=== PATIENT | male | born 1970 | race Caucasian/White ===

== ENCOUNTER 2021-07-16 19:43 | Inpatient (IN) | payer OTHER ==
[2021-07-16 20:29] LABS: ALT (SGPT) 54 U/L (8-55); AST (SGOT) 49 U/L (5-34); Albumin 3.8 g/dL (3.5-5.0); Alkaline Phosphatase 73 U/L (40-110); Anion Gap 14 mmol/L (10-20); BUN (Urea Nitrogen) 18 mg/dL (8.9-20.6); Bilirubin, Total 0.8 mg/dL (0.2-1.2); Calc. Creatinine Clearance 0 mL/min (70-130); Calcium 9.1 mg/dL (7.8-10.44); Carbon Dioxide 24 mmol/L (22-29); Chloride 104 mmol/L (98-107); Globulin 3.5 g/dL (2.4-3.5); Glucose 257 mg/dL (70-105); Potassium 4.4 mmol/L (3.5-5.1); Protein, Total 7.3 g/dL (6.0-8.3); Sodium 138 mmol/L (136-145)
[2021-07-16 20:40] LABS: #Monocytes 0.3 10x3/uL (0.0-1.1); #Neutrophils 8.6 10x3/uL (1.5-8.4); %Basophils 0.2 % (0.0-2.0); %Lymphocytes 7.7 % (18.0-47.0); %Monocytes 3.2 % (0.0-10.0); Hemoglobin 14.7 g/dL (13.5-17.5); Mean Corpuscular HGB CONC 34.1 g/dL (32.0-36.0); Mean Corpuscular Hemoglobin 29.8 pg (27.0-33.0); Mean Corpuscular Volume 87.2 fl (81.2-95.1); Mean Platelet Volume 10.8 fl (7.4-10.4); Platelet Count 194 10x3/uL (150-450); RBC Distribution Width 12.1 % (11.5-14.5); Red Blood Cell (RBC) Count 4.94 10x6/uL (4.32-5.72); White Blood Cell (WBC) Count 9.7 10x3/uL (3.5-10.5)
[2021-07-16] MEDS ORDERED: Dextrose 5% in Water 1,000 ML IV PRN (23:31)
[2021-07-16] MEDS ORDERED: Dextrose 50% Abboject 50 ML SYRINGE SLOW IVP PRN (23:31)
[2021-07-16] MEDS ORDERED: Zinc Sulfate 220 MG CAP PO SCH (23:45)
[2021-07-16] MEDS ORDERED: Ascorbic Acid 500 mg Chewable Tablet PO SCH (23:45)
[2021-07-16] MEDS ORDERED: Cholecalciferol 1,000 UNITS (25 MCG) TAB PO SCH (23:45)
[2021-07-16] MEDS ORDERED: Sodium Chloride 0.9% 1,000 ML IV SCH (23:59)
[2021-07-17] MEDS ORDERED: Furosemide 20 MG/2 ML VIAL SLOW IVP SCH (00:15)
[2021-07-17 00:26] LABS: Magnesium 2.2 mg/dL (1.6-2.6); Troponin I Less than 0.010 ng/mL (< 0.028)
[2021-07-17 03:48] LABS: Hemoglobin 14.8 g/dL (13.5-17.5); MDiff Complete? YES; Manual Diff?? YES; Mean Corpuscular HGB CONC 32.8 g/dL (32.0-36.0); Mean Corpuscular Hemoglobin 29.1 pg (27.0-33.0); Mean Corpuscular Volume 88.6 fl (81.2-95.1); Mean Platelet Volume 10.9 fl (7.4-10.4); Platelet Count 213 10x3/uL (150-450); Red Blood Cell (RBC) Count 5.09 10x6/uL (4.32-5.72); White Blood Cell (WBC) Count 7.4 10x3/uL (3.5-10.5)
[2021-07-17 04:02] LABS: Anion Gap 17 mmol/L (10-20); BUN (Urea Nitrogen) 18 mg/dL (8.9-20.6); Calc. Creatinine Clearance 140 mL/min (70-130); Calcium 9.2 mg/dL (7.8-10.44); Carbon Dioxide 23 mmol/L (22-29); Chloride 103 mmol/L (98-107); Glucose 233 mg/dL (70-105); Potassium 3.9 mmol/L (3.5-5.1); Sodium 139 mmol/L (136-145)
[2021-07-17 04:05] LABS: Troponin I Less than 0.010 ng/mL (< 0.028)
[2021-07-17 06:12] LABS: Band 1 % (5-11); Lymphocytes 6 % (21-51); Monocytes 4 % (0-10); Neutrophil 88 % (42-75); Reactive Lymphocytes 1 % (0-10)
[2021-07-17 06:13] LABS: Platelet Morphology Comment Appears Adequate
[2021-07-17] MEDS ORDERED: Budesonide 0.5 MG/2 ML NEB NEB SCH (06:30)
[2021-07-17] MEDS: Enoxaparin Sodium 40 MG/0.4 ML SYRINGE SC SCH (07:56)
[2021-07-17] MEDS: Cholecalciferol 1,000 UNITS (25 MCG) TAB PO SCH (08:02)
[2021-07-17] MEDS: Ascorbic Acid 500 mg Chewable Tablet PO SCH (08:02)
[2021-07-17] MEDS: Zinc Sulfate 220 MG CAP PO SCH (08:02)
[2021-07-17] MEDS ORDERED: Mometasone 100 MCG/PUFF (1 INHALER) INH SCH (09:00)
[2021-07-17] MEDS ORDERED: Dexamethasone 4 mg/ml Vial SLOW IVP SCH (09:00)
[2021-07-17] MEDS ORDERED: Famotidine/PF 20 mg/2ml Vial SLOW IVP SCH (09:00)
[2021-07-17] MEDS: HumaLOG 300 UNITS/3 ML VIAL SC PRN ×3 (09:12→20:38)
[2021-07-17] MEDS ORDERED: BARICITINIB 2 MG TAB PO SCH (09:30)
[2021-07-17] MEDS: Mometasone 100 MCG/PUFF (1 INHALER) INH SCH (09:50)
[2021-07-17] MEDS ORDERED: ALPRAZolam 0.5 MG TAB PO PRN (10:07)
[2021-07-17] MEDS: methylPREDNISolone Sod Succ/PF 125 MG/2 ML VIAL IVP SCH ×2 (10:43→22:35)
[2021-07-17] MEDS: Famotidine/PF 20 mg/2ml Vial SLOW IVP SCH (20:41)
[2021-07-18] MEDS ORDERED: Guaifenesin DM 100-10/5 ML UDCUP PO PRN (00:11)
[2021-07-18] MEDS: HumaLOG 300 UNITS/3 ML VIAL SC PRN ×6 (00:41→20:53)
[2021-07-18 03:50] LABS: Hemoglobin 14.8 g/dL (13.5-17.5); Mean Corpuscular HGB CONC 33.3 g/dL (32.0-36.0); Mean Corpuscular Hemoglobin 29.8 pg (27.0-33.0); Mean Corpuscular Volume 89.5 fl (81.2-95.1); Mean Platelet Volume 11.5 fl (7.4-10.4); Platelet Count 240 10x3/uL (150-450); RBC Distribution Width 11.9 % (11.5-14.5); Red Blood Cell (RBC) Count 4.96 10x6/uL (4.32-5.72); White Blood Cell (WBC) Count 9.6 10x3/uL (3.5-10.5)
[2021-07-18 04:12] LABS: Troponin I Less than 0.010 ng/mL (< 0.028)
[2021-07-18 04:31] LABS: ALT (SGPT) 70 U/L (8-55); AST (SGOT) 43 U/L (5-34); Albumin 3.7 g/dL (3.5-5.0); Alkaline Phosphatase 71 U/L (40-110); Anion Gap 18 mmol/L (10-20); BUN (Urea Nitrogen) 28 mg/dL (8.9-20.6); Bilirubin, Total 0.7 mg/dL (0.2-1.2); Calc. Creatinine Clearance 137 mL/min (70-130); Calcium 9.4 mg/dL (7.8-10.44); Carbon Dioxide 23 mmol/L (22-29); Chloride 103 mmol/L (98-107); Globulin 3.4 g/dL (2.4-3.5); Glucose 269 mg/dL (70-105); Potassium 4.5 mmol/L (3.5-5.1); Protein, Total 7.1 g/dL (6.0-8.3); Sodium 139 mmol/L (136-145)
[2021-07-18 04:34] LABS: MDiff Complete? YES; Manual Diff?? YES
[2021-07-18 04:48] LABS: Band 2 % (5-11); Lymphocytes 4 % (21-51); Monocytes 2 % (0-10); Neutrophil 91 % (42-75); Platelet Morphology Comment Appears Adequate; Reactive Lymphocytes 1 % (0-10)
[2021-07-18 07:30] LABS: Actual Bicarbonate (HCO3a) 25.1 mEq/L (22-28); Base Excess (BEa) 1.6 mEq/L (-2.0 to +3.0); CO2 Tension 36.4 mmHg (35.0-45.0); Calcium, Ionized (arterial) 1.21 mmol/L (1.12-1.30); Carboxyhemoglobin (COHb) 0.3 gm% (0.0-3.0); Hemoglobin (Hb) 15.2 g/dL (14.0-18.0); O2 Tension (PaO2), arterial 73.6 mmHg (80.0-100.0); Potassium - ABG Lab 4.4 mmol/L (3.70-5.30); Puncture Site RRA; pH, Arterial 7.46 (7.35-7.45)
[2021-07-18] MEDS: Mometasone 100 MCG/PUFF (1 INHALER) INH SCH ×2 (08:18→18:59)
[2021-07-18] MEDS: Zinc Sulfate 220 MG CAP PO SCH (08:24)
[2021-07-18] MEDS: BARICITINIB 2 MG TAB PO SCH (08:24)
[2021-07-18] MEDS: Enoxaparin Sodium 40 MG/0.4 ML SYRINGE SC SCH (08:25)
[2021-07-18] MEDS: Ascorbic Acid 500 mg Chewable Tablet PO SCH (08:25)
[2021-07-18] MEDS: Cholecalciferol 1,000 UNITS (25 MCG) TAB PO SCH (08:25)
[2021-07-18] MEDS: Famotidine/PF 20 mg/2ml Vial SLOW IVP SCH ×2 (08:25→21:47)
[2021-07-18] MEDS: methylPREDNISolone Sod Succ/PF 125 MG/2 ML VIAL IVP SCH ×2 (09:40→21:43)
[2021-07-18] MEDS ORDERED: Senokot S 8.6-50 MG TAB PO PRN (12:08)
[2021-07-18] MEDS ORDERED: Ondansetron ODT 4 MG TAB PO PRN (12:08)
[2021-07-18] MEDS ORDERED: Hydrocerin (Eucerin) Cream 120 gm Jar TOP PRN (12:08)
[2021-07-18] MEDS ORDERED: Cepastat Lozenges 1 LOZ PO PRN (12:08)
[2021-07-18] MEDS ORDERED: HYDROcodone/Acetaminophen 5/325 mg Tablet PO PRN (12:08)
[2021-07-18] MEDS ORDERED: Sodium Chloride 0.65% Nasal 44 ML BOT EA NARE PRN (12:08)
[2021-07-18] MEDS ORDERED: Loperamide HCl 2 MG CAP PO PRN (12:08)
[2021-07-18] MEDS ORDERED: Artificial Tear Sol 15 ML BOT EA EYE PRN (12:08)
[2021-07-18] MEDS ORDERED: Loratadine 10 MG TAB PO PRN (12:08)
[2021-07-18] MEDS ORDERED: GUAIFENESIN SF SOLN 200 MG/10 ML UDCUP PO PRN (12:08)
[2021-07-18] MEDS ORDERED: Ondansetron PF 4 MG/2 ML Vial IVP PRN (12:08)
[2021-07-18] MEDS ORDERED: Bisacodyl 5 MG TAB PO PRN (12:08)
[2021-07-18] MEDS ORDERED: hydrALAZINE 20 MG/ML VIAL SLOW IVP PRN (12:08)
[2021-07-18] MEDS ORDERED: Calcium Carbonate 500 MG ChewTAB PO PRN (12:08)
[2021-07-18] MEDS: Benzonatate 100 MG CAP PO PRN (21:48)
[2021-07-18] MEDS: ALPRAZolam 0.25 MG TAB PO PRN (22:35)
[2021-07-19] MEDS: HumaLOG 300 UNITS/3 ML VIAL SC PRN ×4 (00:07→20:16)
[2021-07-19 05:02] LABS: ALT (SGPT) 60 U/L (8-55); AST (SGOT) 29 U/L (5-34); Albumin 3.6 g/dL (3.5-5.0); Alkaline Phosphatase 63 U/L (40-110); Anion Gap 16 mmol/L (10-20); BUN (Urea Nitrogen) 30 mg/dL (8.9-20.6); Bilirubin, Total 0.7 mg/dL (0.2-1.2); CRP (Inflammatory) 2.98 mg/dL (= or < 0.5); Calc. Creatinine Clearance 125 mL/min (70-130); Calcium 9.5 mg/dL (7.8-10.44); Carbon Dioxide 27 mmol/L (22-29); Chloride 103 mmol/L (98-107); Globulin 3.3 g/dL (2.4-3.5); Glucose 178 mg/dL (70-105); Magnesium 2.6 mg/dL (1.6-2.6); Potassium 4.5 mmol/L (3.5-5.1); Protein, Total 6.9 g/dL (6.0-8.3); Sodium 141 mmol/L (136-145)
[2021-07-19 05:23] LABS: #Monocytes 0.5 10x3/uL (0.0-1.1); #Neutrophils 9.8 10x3/uL (1.5-8.4); %Basophils 0.2 % (0.0-2.0); %Lymphocytes 8.9 % (18.0-47.0); %Monocytes 4.5 % (0.0-10.0); %Neutrophils 85.2 % (40.0-75.0); Hemoglobin 14.6 g/dL (13.5-17.5); Mean Corpuscular HGB CONC 33.1 g/dL (32.0-36.0); Mean Corpuscular Hemoglobin 29.4 pg (27.0-33.0); Mean Corpuscular Volume 88.9 fl (81.2-95.1); Mean Platelet Volume 11.5 fl (7.4-10.4); Platelet Count 287 10x3/uL (150-450); RBC Distribution Width 11.7 % (11.5-14.5); Red Blood Cell (RBC) Count 4.96 10x6/uL (4.32-5.72); White Blood Cell (WBC) Count 11.5 10x3/uL (3.5-10.5)
[2021-07-19] MEDS ORDERED: Acetaminophen 325 MG TAB PO PRN (07:36)
[2021-07-19] MEDS ORDERED: Famotidine 20 MG TAB PO SCH (09:00)
[2021-07-19] MEDS: Zinc Sulfate 220 MG CAP PO SCH (09:25)
[2021-07-19] MEDS: Enoxaparin Sodium 40 MG/0.4 ML SYRINGE SC SCH (09:25)
[2021-07-19] MEDS: Ascorbic Acid 500 mg Chewable Tablet PO SCH (09:25)
[2021-07-19] MEDS: BARICITINIB 2 MG TAB PO SCH (09:25)
[2021-07-19] MEDS: methylPREDNISolone Sod Succ/PF 125 MG/2 ML VIAL IVP SCH ×2 (09:26→21:18)
[2021-07-19] MEDS: Cholecalciferol 1,000 UNITS (25 MCG) TAB PO SCH (09:26)
[2021-07-19] MEDS: Mometasone 100 MCG/PUFF (1 INHALER) INH SCH ×2 (14:04→19:35)
[2021-07-19] MEDS: Ventolin HFA Inhaler 60 PUFF INHALER INH SCH ×2 (14:20→19:40)
[2021-07-19] MEDS: ALPRAZolam 0.25 MG TAB PO PRN (22:56)
[2021-07-20] MEDS: HumaLOG 300 UNITS/3 ML VIAL SC PRN ×6 (00:09→20:59)
[2021-07-20] MEDS: Ventolin HFA Inhaler 60 PUFF INHALER INH SCH ×4 (01:15→20:00)
[2021-07-20 04:28] LABS: #Monocytes 0.6 10x3/uL (0.0-1.1); #Neutrophils 8.2 10x3/uL (1.5-8.4); %Basophils 0.2 % (0.0-2.0); %Lymphocytes 10.4 % (18.0-47.0); %Monocytes 6.1 % (0.0-10.0); %Neutrophils 82.2 % (40.0-75.0); Hemoglobin 14.3 g/dL (13.5-17.5); Mean Corpuscular HGB CONC 33.2 g/dL (32.0-36.0); Mean Corpuscular Hemoglobin 29.2 pg (27.0-33.0); Mean Platelet Volume 11.6 fl (7.4-10.4); Platelet Count 277 10x3/uL (150-450); RBC Distribution Width 11.6 % (11.5-14.5); White Blood Cell (WBC) Count 9.9 10x3/uL (3.5-10.5)
[2021-07-20 04:40] LABS: CRP (Inflammatory) 1.54 mg/dL (= or < 0.5); Phosphorus 4.7 mg/dL (2.3-4.7)
[2021-07-20 04:41] LABS: ALT (SGPT) 51 U/L (8-55); AST (SGOT) 26 U/L (5-34); Albumin 3.5 g/dL (3.5-5.0); Alkaline Phosphatase 58 U/L (40-110); Bilirubin, Direct 0.3 mg/dL (0.1-0.3); Bilirubin, Total 0.8 mg/dL (0.2-1.2); Magnesium 2.5 mg/dL (1.6-2.6)
[2021-07-20 04:46] LABS: Protein, Total 6.4 g/dL (6.0-8.3)
[2021-07-20] MEDS: Cholecalciferol 1,000 UNITS (25 MCG) TAB PO SCH (08:28)
[2021-07-20] MEDS: Ascorbic Acid 500 mg Chewable Tablet PO SCH (08:28)
[2021-07-20] MEDS: BARICITINIB 2 MG TAB PO SCH (08:28)
[2021-07-20] MEDS: Enoxaparin Sodium 40 MG/0.4 ML SYRINGE SC SCH (08:28)
[2021-07-20] MEDS: Zinc Sulfate 220 MG CAP PO SCH (08:30)
[2021-07-20] MEDS: methylPREDNISolone Sod Succ/PF 125 MG/2 ML VIAL IVP SCH ×2 (10:15→21:27)
[2021-07-20] MEDS: Mometasone 100 MCG/PUFF (1 INHALER) INH SCH ×2 (12:40→19:50)
[2021-07-21] MEDS: HumaLOG 300 UNITS/3 ML VIAL SC PRN ×4 (00:33→16:33)
[2021-07-21] MEDS: Ventolin HFA Inhaler 60 PUFF INHALER INH SCH ×4 (01:50→19:18)
[2021-07-21] MEDS: Mometasone 100 MCG/PUFF (1 INHALER) INH SCH ×2 (07:02→19:15)
[2021-07-21] MEDS ORDERED: HumaLOG 300 UNITS/3 ML VIAL ONE (08:39)
[2021-07-21] MEDS: Ascorbic Acid 500 mg Chewable Tablet PO SCH (08:49)
[2021-07-21] MEDS: BARICITINIB 2 MG TAB PO SCH (08:50)
[2021-07-21] MEDS: Zinc Sulfate 220 MG CAP PO SCH (08:51)
[2021-07-21] MEDS: Benzonatate 100 MG CAP PO PRN (08:51)
[2021-07-21] MEDS: Cholecalciferol 1,000 UNITS (25 MCG) TAB PO SCH (08:51)
[2021-07-21] MEDS: Enoxaparin Sodium 40 MG/0.4 ML SYRINGE SC SCH (08:51)
[2021-07-21] MEDS: methylPREDNISolone Sod Succ/PF 125 MG/2 ML VIAL IVP SCH ×2 (12:17→21:24)
[2021-07-22] MEDS: Ventolin HFA Inhaler 60 PUFF INHALER INH SCH ×4 (01:40→19:10)
[2021-07-22 04:36] LABS: #Monocytes 0.3 10x3/uL (0.0-1.1); #Neutrophils 8.9 10x3/uL (1.5-8.4); %Basophils 0.1 % (0.0-2.0); %Lymphocytes 8.3 % (18.0-47.0); %Monocytes 3.2 % (0.0-10.0); %Neutrophils 86.6 % (40.0-75.0); Hemoglobin 14.6 g/dL (13.5-17.5); Mean Corpuscular HGB CONC 34.4 g/dL (32.0-36.0); Mean Corpuscular Hemoglobin 29.7 pg (27.0-33.0); Mean Corpuscular Volume 86.6 fl (81.2-95.1); Mean Platelet Volume 11.3 fl (7.4-10.4); Platelet Count 285 10x3/uL (150-450); RBC Distribution Width 11.7 % (11.5-14.5); Red Blood Cell (RBC) Count 4.91 10x6/uL (4.32-5.72); White Blood Cell (WBC) Count 10.3 10x3/uL (3.5-10.5)
[2021-07-22 04:58] LABS: ALT (SGPT) 58 U/L (8-55); AST (SGOT) 24 U/L (5-34); Albumin 3.4 g/dL (3.5-5.0); Alkaline Phosphatase 59 U/L (40-110); Anion Gap 12 mmol/L (10-20); BUN (Urea Nitrogen) 26 mg/dL (8.9-20.6); CRP (Inflammatory) 0.53 mg/dL (= or < 0.5); Calc. Creatinine Clearance 129 mL/min (70-130); Calcium 8.9 mg/dL (7.8-10.44); Carbon Dioxide 27 mmol/L (22-29); Chloride 102 mmol/L (98-107); Globulin 2.9 g/dL (2.4-3.5); Glucose 251 mg/dL (70-105); Potassium 4.7 mmol/L (3.5-5.1); Protein, Total 6.3 g/dL (6.0-8.3); Sodium 136 mmol/L (136-145)
[2021-07-22] MEDS: Mometasone 100 MCG/PUFF (1 INHALER) INH SCH ×2 (07:30→19:15)
[2021-07-22] MEDS: Zinc Sulfate 220 MG CAP PO SCH (08:52)
[2021-07-22] MEDS: methylPREDNISolone Sod Succ 40 MG VIAL IVP SCH ×2 (08:52→20:07)
[2021-07-22] MEDS: Enoxaparin Sodium 40 MG/0.4 ML SYRINGE SC SCH (08:52)
[2021-07-22] MEDS: Cholecalciferol 1,000 UNITS (25 MCG) TAB PO SCH (08:52)
[2021-07-22] MEDS: metFORMIN 500 MG TAB PO SCH ×2 (08:52→18:19)
[2021-07-22] MEDS: BARICITINIB 2 MG TAB PO SCH (08:52)
[2021-07-22] MEDS: HumaLOG 300 UNITS/3 ML VIAL SC PRN ×4 (08:53→20:12)
[2021-07-22] MEDS: Ascorbic Acid 500 mg Chewable Tablet PO SCH (08:53)
[2021-07-23] MEDS: Ventolin HFA Inhaler 60 PUFF INHALER INH SCH ×4 (01:14→21:30)
[2021-07-23 06:21] LABS: ALT (SGPT) 58 U/L (8-55); AST (SGOT) 21 U/L (5-34); Albumin 3.4 g/dL (3.5-5.0); Alkaline Phosphatase 61 U/L (40-110); Bilirubin, Direct 0.3 mg/dL (0.1-0.3); Bilirubin, Total 0.9 mg/dL (0.2-1.2); Protein, Total 6.3 g/dL (6.0-8.3)
[2021-07-23] MEDS: HumaLOG 300 UNITS/3 ML VIAL SC PRN ×5 (06:45→20:43)
[2021-07-23] MEDS: Mometasone 100 MCG/PUFF (1 INHALER) INH SCH ×2 (07:09→21:22)
[2021-07-23] MEDS: metFORMIN 500 MG TAB PO SCH ×2 (09:01→18:05)
[2021-07-23] MEDS: Zinc Sulfate 220 MG CAP PO SCH (09:01)
[2021-07-23] MEDS: BARICITINIB 2 MG TAB PO SCH (09:01)
[2021-07-23] MEDS: Ascorbic Acid 500 mg Chewable Tablet PO SCH (09:01)
[2021-07-23] MEDS: Cholecalciferol 1,000 UNITS (25 MCG) TAB PO SCH (09:01)
[2021-07-23] MEDS: Enoxaparin Sodium 40 MG/0.4 ML SYRINGE SC SCH (09:01)
[2021-07-23] MEDS: methylPREDNISolone Sod Succ 40 MG VIAL IVP SCH ×2 (09:01→20:43)
[2021-07-24] MEDS: Ventolin HFA Inhaler 60 PUFF INHALER INH SCH ×5 (02:03→23:50)
[2021-07-24] MEDS: HumaLOG 300 UNITS/3 ML VIAL SC PRN ×4 (05:26→22:15)
[2021-07-24] MEDS: Mometasone 100 MCG/PUFF (1 INHALER) INH SCH ×2 (07:36→18:35)
[2021-07-24] MEDS: metFORMIN 500 MG TAB PO SCH ×2 (10:47→17:38)
[2021-07-24] MEDS: Ascorbic Acid 500 mg Chewable Tablet PO SCH (10:47)
[2021-07-24] MEDS: Enoxaparin Sodium 40 MG/0.4 ML SYRINGE SC SCH (10:48)
[2021-07-24] MEDS: BARICITINIB 2 MG TAB PO SCH (10:48)
[2021-07-24] MEDS: Cholecalciferol 1,000 UNITS (25 MCG) TAB PO SCH (10:48)
[2021-07-24] MEDS: Zinc Sulfate 220 MG CAP PO SCH (10:49)
[2021-07-24] MEDS: methylPREDNISolone Sod Succ 40 MG VIAL IVP SCH ×2 (10:49→22:08)
[2021-07-25] MEDS: HumaLOG 300 UNITS/3 ML VIAL SC PRN ×2 (06:06→16:45)
[2021-07-25] MEDS: Ventolin HFA Inhaler 60 PUFF INHALER INH SCH ×3 (07:37→19:16)
[2021-07-25] MEDS: Mometasone 100 MCG/PUFF (1 INHALER) INH SCH ×2 (07:38→19:16)
[2021-07-25] MEDS: metFORMIN 500 MG TAB PO SCH ×2 (10:57→16:45)
[2021-07-25] MEDS: BARICITINIB 2 MG TAB PO SCH (10:58)
[2021-07-25] MEDS: predniSONE 20 MG TAB PO SCH (10:58)
[2021-07-25] MEDS: Ascorbic Acid 500 mg Chewable Tablet PO SCH (10:58)
[2021-07-25] MEDS: Cholecalciferol 1,000 UNITS (25 MCG) TAB PO SCH (10:59)
[2021-07-25] MEDS: Enoxaparin Sodium 40 MG/0.4 ML SYRINGE SC SCH (10:59)
[2021-07-25] MEDS: Zinc Sulfate 220 MG CAP PO SCH (10:59)
[2021-07-26] MEDS: Ventolin HFA Inhaler 60 PUFF INHALER INH SCH ×4 (02:13→20:01)
[2021-07-26 04:51] LABS: ALT (SGPT) 82 U/L (8-55); AST (SGOT) 29 U/L (5-34); Albumin 3.6 g/dL (3.5-5.0); Alkaline Phosphatase 65 U/L (40-110); Anion Gap 13 mmol/L (10-20); BUN (Urea Nitrogen) 24 mg/dL (8.9-20.6); Bilirubin, Direct 0.3 mg/dL (0.1-0.3); Bilirubin, Total 0.8 mg/dL (0.2-1.2); Calc. Creatinine Clearance 134 mL/min (70-130); Calcium 9.3 mg/dL (7.8-10.44); Carbon Dioxide 31 mmol/L (22-29); Chloride 97 mmol/L (98-107); Glucose 161 mg/dL (70-105); Potassium 4.7 mmol/L (3.5-5.1); Protein, Total 6.3 g/dL (6.0-8.3); Sodium 136 mmol/L (136-145)
[2021-07-26] MEDS: Ascorbic Acid 500 mg Chewable Tablet PO SCH (09:03)
[2021-07-26] MEDS: predniSONE 20 MG TAB PO SCH (09:03)
[2021-07-26] MEDS: metFORMIN 500 MG TAB PO SCH ×2 (09:03→17:42)
[2021-07-26] MEDS: Zinc Sulfate 220 MG CAP PO SCH (09:04)
[2021-07-26] MEDS: Enoxaparin Sodium 40 MG/0.4 ML SYRINGE SC SCH (09:04)
[2021-07-26] MEDS: Cholecalciferol 1,000 UNITS (25 MCG) TAB PO SCH (09:04)
[2021-07-26] MEDS: Mometasone 100 MCG/PUFF (1 INHALER) INH SCH ×2 (09:18→20:01)
[2021-07-26] MEDS ORDERED: BARICITINIB 2 MG TAB PO SCH (17:00)
[2021-07-26] MEDS: HumaLOG 300 UNITS/3 ML VIAL SC PRN (17:42)
[2021-07-27] MEDS: Ventolin HFA Inhaler 60 PUFF INHALER INH SCH ×2 (01:00→07:56)
[2021-07-27 05:46] VITALS: BMI 37.8
[2021-07-27] MEDS: Mometasone 100 MCG/PUFF (1 INHALER) INH SCH (07:46)
[2021-07-27] MEDS: Ascorbic Acid 500 mg Chewable Tablet PO SCH (08:35)
[2021-07-27] MEDS: predniSONE 20 MG TAB PO SCH (08:35)
[2021-07-27] MEDS: Cholecalciferol 1,000 UNITS (25 MCG) TAB PO SCH (08:36)
[2021-07-27] MEDS: metFORMIN 500 MG TAB PO SCH (08:36)
[2021-07-27] MEDS: Zinc Sulfate 220 MG CAP PO SCH (08:36)
[2021-07-27] MEDS: Enoxaparin Sodium 40 MG/0.4 ML SYRINGE SC SCH (08:36)
[2021-07-27 12:29] VITALS: BP 132/60; TEMP 96.5
== END 2021-07-27 13:15 | disposition home or self-care (01) | DRG 177 ==
LOC: CSHERS 19:43 → CSHIMCU 22:56 → CSHTELE 07-21 20:20
PROVIDERS: ADMIT Family Medicine; ATTEND Internal Medicine
PROC: 8E0ZXY6 Isolation (ICD-10-PCS; 2021-07-16)
PROC: XW0DXM6 Introduction of Baricitinib into Mouth and Pharynx, External Approach, New Technology Group 6 (ICD-10-PCS; principal; 2021-07-17)
PROC: 3E0333Z Introduction of Anti-inflammatory into Peripheral Vein, Percutaneous Approach (ICD-10-PCS; 2021-07-17)
DX: U07.1 COVID-19 (principal); J12.82 Pneumonia due to coronavirus disease 2019; J96.01 Acute respiratory failure with hypoxia; F17.210 Nicotine dependence, cigarettes, uncomplicated; E11.65 Type 2 diabetes mellitus with hyperglycemia; F41.9 Anxiety disorder, unspecified; E66.9 Obesity, unspecified; T38.0X5A Adverse effect of glucocorticoids and synthetic analogues, initial encounter; Z88.8 Allergy status to other drugs, medicaments and biological substances; Z83.3 Family history of diabetes mellitus; Z68.38 Body mass index [BMI] 38.0-38.9, adult; Z82.3 Family history of stroke; Z82.49 Family history of ischemic heart disease and other diseases of the circulatory system
CPT/HCPCS: 36415; 36416; 36600; 71045; 80048; 80053; 80076; 82805; 83605; 83735; 83880; 84100; 84484; 85025; 85652; 86140; 93005; 93010; 93306; 94640; 94664; 94760; 94799; J1100; J1650; J1815; J2920; J2930; J7512; S0028